=== PATIENT | female | born 1960 | race Caucasian/White ===

== ENCOUNTER → 2016-02-17 | Outpatient (CLI) | payer BC ==
[~2016-02-17] MED LIST: CARB200C5 PO; VITA50003 PO
--- NOTE | 2016-02-17 13:45 | REPMRS ---
Patient History The patient states she had a clinical breast exam in 02/2015. Family history of pancreatic cancer in father. Digital Woman Screen Mammo: February 17, 2016 - Exam #: [id number] Bilateral CC and MLO view(s) were taken. Technologist: Lis Hollins, Technologist Prior study comparison: January 20, 2015, digital woman screen mammo performed at [facility] to [facility]. January 14, 2014, digital woman screen mammo performed at [facility]. January 12, 2013, digital woman screen mammo performed at [facility] to [facility]. FINDINGS: There are scattered fibroglandular densities. There has been no change in the appearance of the mammogram from the prior studies. There is a mild amount of scattered fibroglandular density which is fairly symmetric. There is no interval development of dominant mass, architectural distortion, or clustered microcalcification suggestive of malignancy. ASSESSMENT: BI-RADS/ACR category 1 mammogram. Negative. Recommendation Routine screening mammogram in 1 year (for women over age 40). This mammogram was interpreted with the aid of an FDA-approved computer-aided dectection system. Electronically Signed By: Tian Salinas MD 02/17/16 0878
== END ==
LOC: M WHC 13:12
PROVIDERS: ATTEND Obstetrics & Gynecology
DX: Z12.31 Encounter for screening mammogram for malignant neoplasm of breast (principal)

== ENCOUNTER → 2016-07-20 | Outpatient (REF) | payer BC | LOC: M LAB REF 16:49 | PROVIDERS: ATTEND Nurse Practitioner Adult Health | DX: R56.9 Unspecified convulsions (principal) ==

== ENCOUNTER 2017-01-05 12:31 | Day surgery (SDC) | payer BC ==
[~2017-01-05] VITALS: Ht 167.6 cm; Wt 58.5 kg
[~2017-01-05 12:31] MED LIST changes: +VITA1CAP40 PO; +VITA1CAP7 PO; -VITA50003 PO
[2017-01-05] MEDS ORDERED: NS 1,000 ML IV ONE (12:45)
--- NOTE | 2017-01-05 14:24 | ROOR ---
Patient Name: Hailey Conway Procedure Date: 01/05/2017 2:00 PM Date of : 1960 Age: 56 Room: [facility] Gender: Female Note Status: Finalized Procedure: Total Colonoscopy to Cecum Indications: Follow-up for history of rectal polyps of uncertain behavior Providers: Marcellus Kamara MD Referring MD: Sheryl Mathis NP Requesting Provider: Medicines: Monitored Anesthesia Care Complications: No immediate complications. Procedure: Pre-Anesthesia Assessment: - The heart rate, respiratory rate, oxygen saturations, blood pressure, adequacy of pulmonary ventilation, and response to care were monitored throughout the procedure. The Colonoscope was introduced through the anus and advanced to the cecum, identified by appendiceal orifice and ileocecal valve. The colonoscopy was performed without difficulty. The patient tolerated the procedure well. The quality of the bowel preparation was excellent. Findings: The perianal and digital rectal examinations were normal. Non-bleeding internal hemorrhoids were found during retroflexion. The hemorrhoids were small and Grade I (internal hemorrhoids that do not prolapse). No other significant abnormalities were identified in a careful examination of the remainder of the colon. The exam was otherwise without abnormality on direct and retroflexion views. Impression: - Non-bleeding internal hemorrhoids. - The examination was otherwise normal on direct and retroflexion views. - No specimens collected. - The exam was otherwise normal to the cecum. Recommendation: - Patient has a contact number available for emergencies. The signs and symptoms of potential delayed complications were discussed with the patient. Return to normal activities tomorrow. Written discharge instructions were provided to the patient. - High fiber diet. - Discharge patient to home. - Continue present medications. - Repeat colonoscopy in 5 years for surveillance. - Return to referring physician. - The findings and recommendations were discussed with the patient's family. Marcellus Kamara MD Marcellus Kamara MD 01/05/2017 2:24:00 PM This report has been signed electronically. Number of Addenda: 0 Note Initiated On: 01/05/2017 2:00 PM Estimated Blood Loss: Estimated blood loss: none.
[2017-01-05] MEDS ORDERED: LIDOCAINE 2% INJ 100 MG/5 ML SDV (FOR ANES.) As Ordered ONE (14:26)
[2017-01-05] MEDS ORDERED: PROPOFOL 200 MG/20 ML VIAL As Ordered ONE (14:27)
[2017-01-05 14:43] VITALS: BP 123/77
== END 2017-01-05 14:58 | disposition home or self-care (01) ==
LOC: M OPP 12:31
PROVIDERS: ATTEND Internal Medicine Gastroenterology
DX: Z86.03 Personal history of neoplasm of uncertain behavior (principal); K64.0 First degree hemorrhoids; Z86.010 Personal history of colon polyps; R56.9 Unspecified convulsions; M19.90 Unspecified osteoarthritis, unspecified site; Z79.899 Other long term (current) drug therapy; Z78.0 Asymptomatic menopausal state; Z09 Encounter for follow-up examination after completed treatment for conditions other than malignant neoplasm

== ENCOUNTER → 2017-02-09 | Outpatient (REF) | payer BC ==
[2017-02-10 05:08] LABS: CARBAMAZEPINE (TEGRETOL) LEVEL 9.1 UG/ML (4.0-10.0)
== END ==
LOC: M LAB REF 16:45
DX: R56.9 Unspecified convulsions (principal)
CPT/HCPCS: 80156

== ENCOUNTER → 2017-02-17 | Outpatient (CLI) | payer BC | LOC: M WHC 12:52 | DX: Z12.31 Encounter for screening mammogram for malignant neoplasm of breast (principal) | CPT/HCPCS: 77067 ==

== ENCOUNTER → 2017-09-15 | Outpatient (REF) | payer BC | LOC: M LAB REF 16:07 | DX: J02.9 Acute pharyngitis, unspecified (principal) | CPT/HCPCS: 87081 ==

== ENCOUNTER → 2017-10-18 | Outpatient (REF) | payer BC ==
[2017-10-18 13:28] LABS: APPEARANCE, URINE HAZY (CLEAR); BACTERIA, URINE AUTO 1+ (NEGATIVE); BILIRUBIN, URINE AUTO NEGATIVE (NEGATIVE); BLOOD, URINE BLOOD 2+ (NEGATIVE); COLOR, URINE STRAW (YELLOW); GLUCOSE, URINE (UA) AUTO NEGATIVE (NEGATIVE); KETONE, URINE AUTO NEGATIVE (NEGATIVE); LEUKOCYTE ESTERASE, URINE AUTO 3+ (NEGATIVE); MUCUS, URINE SMALL (NEGATIVE); NITRITE, URINE AUTO NEGATIVE (NEGATIVE); PROTEIN, URINE AUTO NEGATIVE (NEGATIVE); RBC, URINE AUTO 7 /HPF (0-3); SPECIFIC GRAVITY URINE AUTO 1.003 (1.002-1.035); SQUAMOUS EPITHELIAL CELL UR AU 0 /HPF (0-6); UROBILINOGEN, URINE AUTO 0.2 mg/dL (0.0-2.0); WBC, URINE AUTO 77 /HPF (0-3)
== END ==
LOC: M LAB REF 12:12
DX: N39.0 Urinary tract infection, site not specified (principal)
CPT/HCPCS: 81001

== ENCOUNTER → 2018-02-21 | Outpatient (CLI) | payer BC ==
[~2018-02-21] MED LIST changes: +CARB1CAP2 PO; -CARB200C5 PO; -VITA1CAP40 PO; +VITA50005 PO
--- NOTE | 2018-02-21 14:03 | REPMRS ---
Patient History The patient states she had a clinical breast exam in 02/2017. Patient is postmenopausal. Family history of pancreatic cancer in father. No Hormone Replacement Therapy Digital Woman Screen Mammo: February 21, 2018 - Exam #: [id number] Bilateral CC and MLO view(s) were taken. Technologist: Lis Hollins, Technologist Prior study comparison: February 17, 2017, digital woman screen mammo performed at [facility]. February 17, 2016, digital woman screen mammo performed at [facility]. January 20, 2015, digital woman screen mammo performed at [facility]. FINDINGS: The breast tissue is heterogeneously dense. This may lower the sensitivity of mammography. There is a moderate amount of heterogeneously dense fibroglandular tissue which is fairly symmetric. There is no interval development of dominant mass, architectural distortion, or clustered microcalcification typical of malignancy. There has been no change in the appearance of the mammogram from the prior studies. 3-D tomosynthesis shows no additional findings. Assessment: BI-RADS/ACR category 1 mammogram. Negative. Recommendation Routine screening mammogram of both breasts in 1 year (for women over age 40). This patient's Lifetime Breast Cancer RIsk is estimated at 10.2 %. This mammogram was interpreted with the aid of an FDA-approved computer-aided dectection system. Electronically Signed By: Tian Salinas MD 02/21/18 [id number]
== END ==
LOC: M WHC 09:41
PROVIDERS: ATTEND Obstetrics & Gynecology
DX: Z12.31 Encounter for screening mammogram for malignant neoplasm of breast (principal); Z78.0 Asymptomatic menopausal state

== ENCOUNTER → 2018-04-12 | Outpatient (REF) | payer BC | LOC: M LAB REF 17:59 | PROVIDERS: ATTEND Nurse Practitioner Adult Health | DX: R56.9 Unspecified convulsions (principal) ==

== ENCOUNTER → 2018-10-17 | Outpatient (REF) | payer BC ==
[~2018-10-17] MED LIST changes: -CARB1CAP2 PO; +CARB200C4 PO; +D-3-50003 PO; -VITA1CAP7 PO
== END ==
LOC: M LAB REF 16:40
PROVIDERS: ATTEND Nurse Practitioner Adult Health
DX: R56.9 Unspecified convulsions (principal)

== ENCOUNTER → 2019-02-15 | Outpatient (REF) | payer BC ==
[2019-02-15 18:58] LABS: C REACTIVE PROTEIN QUANTITATIV < 0.30 MG/DL (0.00-0.30); CARBAMAZEPINE (TEGRETOL) LEVEL 8.3 UG/ML (4.0-10.0); RHEUMATOID FACTOR QUANT < 10.0 IU/ML (<15.0)
[2019-02-16 18:20] LABS: HEPATITIS B SURFACE ANTIGEN NEGATIVE (NEGATIVE)
[2019-02-16 18:47] LABS: HEPATITIS B CORE ANTIBODY IGM NEGATIVE (NEGATIVE); HEPATITIS C VIRUS ABY INDEX < 0.0 INDEX (<0.8)
[2019-02-16 18:49] LABS: HEPATITIS A ANTIBODY IGM NEGATIVE (NEGATIVE)
[2019-02-19 00:06] LABS: ANTINUCLEAR ANTIBODIES DIRECT Negative (Negative); CYCLIC CITRULLINATED PEPTIDE 12 units (0-19); Lyme Disease IgG/IgM Antibodie <0.91 ISR (0.00-0.90); Lyme Disease IgM Ab Quantitati <0.80 index (0.00-0.79)
== END ==
LOC: M LAB REF 17:42
PROVIDERS: ATTEND Nurse Practitioner Adult Health
DX: M25.50 Pain in unspecified joint (principal); R56.9 Unspecified convulsions

== ENCOUNTER → 2019-03-06 | Outpatient (CLI) | payer BC ==
--- NOTE | 2019-03-06 09:34 | REP ---
BILATERAL SCREENING DIGITAL MAMMOGRAM WITH 3D TOMOSYNTHESIS: There are no palpable abnormalities or other breast complaints. The the patient states she had a clinical breast examination the February,. The Tyrer Cuzick Score is: 10.0% . Comparison is 01/20/2015. The breasts are heterogeneously dense, which could obscure small masses. There is no dominant mass, micro calcific cluster or architectural distortion that would indicate malignancy. There are no additional findings on 3D tomosynthesiss. There is no change from the prior study. Impression: BIRADS/ACR category 1 mammogram. Negative. Recommendation: Routine annual screening mammography. Because of the increased breast density, annual adjunctive breast MRI in addition to screening mammography is recommended. These can be performed at alternating six month intervals. This mammogram was interpreted with the aid of a FDA approved computer-aided detection system. A. Negative mammogram reports should not delay biopsy if a dominant or clinically suspicious mass is present. B. Not all breast cancers are identified by mammography or tomosynthesis. C. Adenosis and dense breasts may obscure an underlying neoplasm. Patient letter M1 dense breasts. Electronically Signed by Robin Peoples MD 03/06/2019 09:25 A
== END ==
LOC: M WHC 08:18
PROVIDERS: ATTEND Obstetrics & Gynecology
DX: Z12.31 Encounter for screening mammogram for malignant neoplasm of breast (principal)

== ENCOUNTER → 2019-03-20 | Outpatient (REF) | payer BC | LOC: M LAB REF 14:09 | PROVIDERS: ATTEND Physician Assistant Medical | DX: J02.0 Streptococcal pharyngitis (principal) ==

== ENCOUNTER → 2020-01-08 | Outpatient (REF) | payer BC | LOC: M LAB REF 16:16 | PROVIDERS: ATTEND Nurse Practitioner Adult Health | DX: R56.9 Unspecified convulsions (principal) ==

== ENCOUNTER → 2020-04-10 | Outpatient (REF) | payer BC | LOC: M LAB REF 16:21 | PROVIDERS: ATTEND Nurse Practitioner Adult Health | DX: J02.9 Acute pharyngitis, unspecified (principal); D10.9 Benign neoplasm of pharynx, unspecified ==

== ENCOUNTER → 2020-07-04 | Outpatient (REF) | payer BC | LOC: M LAB REF 11:10 | PROVIDERS: ATTEND Nurse Practitioner Adult Health | DX: Z79.899 Other long term (current) drug therapy (principal); R56.9 Unspecified convulsions ==

== ENCOUNTER → 2020-07-23 | Outpatient (REF) | payer BC | LOC: M LAB REF 14:47 | PROVIDERS: ATTEND Physician Assistant | DX: C44.622 Squamous cell carcinoma of skin of right upper limb, including shoulder (principal) ==

== ENCOUNTER → 2020-09-02 | Outpatient (REF) | payer BC ==
[2020-09-02 19:23] LABS: GC DNA AMPLIFICATION NEGATIVE (NEGATIVE)
[2020-09-02 19:37] LABS: HIV 1&2 SCREEN CENTAUR NEGATIVE (NEGATIVE)
== END ==
LOC: M LAB REF 16:50
PROVIDERS: ATTEND Nurse Practitioner Adult Health
DX: Z72.51 High risk heterosexual behavior (principal); R30.0 Dysuria

== ENCOUNTER → 2021-01-05 | Outpatient (REF) | payer BC | LOC: M LAB REF 13:59 | PROVIDERS: ATTEND Physician Assistant | DX: L08.9 Local infection of the skin and subcutaneous tissue, unspecified (principal) ==

== ENCOUNTER → 2021-01-09 | Outpatient (REF) | payer BC | LOC: M LAB REF 12:21 → EEVIPCON 12:21 | PROVIDERS: ATTEND Nurse Practitioner Adult Health | DX: R56.9 Unspecified convulsions (principal); Z79.899 Other long term (current) drug therapy ==

== ENCOUNTER → 2021-02-11 | Outpatient (CLI) | payer BC ==
--- NOTE | 2021-02-11 15:57 | REPMRS ---
Patient History The patient states she had a clinical breast exam in 2020. Family history of pancreatic cancer in father. No Hormone Replacement Therapy No breast complaints today Patient signed the MRS sheet Patient not sure of dates of first 2 Moderna vaccines but in the left arm 3rd vaccine the beginning of Jan.-left arm Priors on PACS Patient Identification Verified Digital Woman Screen Mammo: February 11, 2021 - Exam #: [id number] Bilateral CC and MLO view(s) were taken. Technologist: Ban Beltran, Technologist Prior study comparison: March 06, 2019, bilateral digital woman screen mammo performed at [facility]. February 21, 2018, bilateral digital woman screen mammo performed at [facility]. FINDINGS: There are scattered fibroglandular densities. Screening. Digital screening (2D) mammography was performed bilaterally in the CC and MLO projections. Additionally, breast tomosynthesis (3D mammography) was performed bilaterally in the CC and MLO projections. Todays exam was compared to the prior exam/exams. By history, the patient has no complaints of a palpable breast abnormality or other significant breast complaints. The breasts are unchanged in size and shape. There are no sergio-soft tissue densities or spiculated masses. There is no internal architectural distortion. There are no suspicious sergio-calcific clusters. Skin thickening or nipple retraction is not present. IMPRESSION: BI-RADS Category 2- Benign Findings. There is no evidence of malignant alteration of the breasts. Followup examination recommended in one year. The Volpara volumetric breast density category is B, there are scattered areas of fibroglandular densities. This mammogram was [facility] FDA approved computer aided detection system for mammography. The lifetime Tyrer-Cuzick score is 9.5 % Negative x-ray reports should not delay surgical consultation if a dominant or clinically suspicious mass is present. Not all breast cancers can be identified by mammography. Therefore, we recommend that you continue to perform regular breast self-examination and physical examination and then promptly contact your physician of any concerns or changes. Adenosis and dense breasts may obscure an underlying neoplasm. Assessment: BI-RADS/ACR category 2 mammogram. Benign Findings. Recommendation Routine screening mammogram of both breasts in 1 year. Electronically Signed By: Will Rubio DO 02/11/21 1553
== END ==
LOC: M WHC 14:11
PROVIDERS: ATTEND Obstetrics & Gynecology
DX: Z12.31 Encounter for screening mammogram for malignant neoplasm of breast (principal)

== ENCOUNTER → 2021-08-03 | Outpatient (REF) | payer BC | LOC: M LAB REF 16:21 | PROVIDERS: ATTEND Nurse Practitioner Adult Health | DX: R56.9 Unspecified convulsions (principal) ==

== ENCOUNTER → 2022-03-21 | Outpatient (CLI) | payer BC, OTHER ==
[~2022-03-21] MED LIST changes: +ROSU10TA6 PO; +VITA1CAP25 PO
== END ==
LOC: M LABSMTC 10:07
PROVIDERS: ATTEND Anesthesiology
DX: Z01.812 Encounter for preprocedural laboratory examination (principal); Z11.52 Encounter for screening for COVID-19

== ENCOUNTER 2022-03-24 08:43 | Day surgery (SDC) | payer OTHER ==
[~2022-03-24] VITALS: Ht 167.6 cm; Wt 61.1 kg
[~2022-03-24 08:43] MED LIST changes: +NS 1,000 ML IV ONE
[2022-03-24] MEDS ORDERED: propofoL 200 MG/20 ML VIAL As Ordered ONE ×2 (09:58→10:07)
[2022-03-24] MEDS ORDERED: LIDOCAINE 2% 100MG/5ML SDV (FOR ANES.) As Ordered ONE (09:58)
[2022-03-24 10:32] VITALS: BP 155/83
== END 2022-03-24 10:44 | disposition home or self-care (01) ==
LOC: M OPP 08:43
PROVIDERS: ATTEND Internal Medicine Gastroenterology
DX: Z12.11 Encounter for screening for malignant neoplasm of colon (principal); Z86.010 Personal history of colon polyps; K64.0 First degree hemorrhoids; K57.30 Diverticulosis of large intestine without perforation or abscess without bleeding; G40.89 Other seizures; Z79.02 Long term (current) use of antithrombotics/antiplatelets; Z79.899 Other long term (current) drug therapy

== ENCOUNTER → 2022-04-12 | Outpatient (REF) | payer OTHER ==
[~2022-04-12] MED LIST changes: -NS 1,000 ML IV ONE
== END ==
LOC: M LAB REF 16:16
PROVIDERS: ATTEND Nurse Practitioner Adult Health
DX: R56.9 Unspecified convulsions (principal)

== ENCOUNTER → 2022-04-16 | Outpatient (REF) | payer OTHER | LOC: M LAB REF 12:14 | PROVIDERS: ATTEND Nurse Practitioner Adult Health | DX: R56.9 Unspecified convulsions (principal) ==

== ENCOUNTER → 2022-04-21 | Outpatient (CLI) | payer OTHER | LOC: M WHC 07:08 | PROVIDERS: ATTEND Nurse Practitioner Adult Health | DX: Z12.31 Encounter for screening mammogram for malignant neoplasm of breast (principal) ==

== ENCOUNTER → 2022-09-15 | Outpatient (REF) | payer OTHER | LOC: M LAB REF 14:10 | PROVIDERS: ATTEND Nurse Practitioner Adult Health | DX: R56.9 Unspecified convulsions (principal) ==

== ENCOUNTER → 2023-03-23 | Outpatient (REF) | payer OTHER | LOC: M LAB REF 17:25 | PROVIDERS: ATTEND Nurse Practitioner Adult Health | DX: R56.9 Unspecified convulsions (principal) ==

== ENCOUNTER → 2023-05-11 | Outpatient (CLI) | payer BC, OTHER | LOC: M WHC 06:49 | PROVIDERS: ATTEND Nurse Practitioner Adult Health | DX: Z12.31 Encounter for screening mammogram for malignant neoplasm of breast (principal); R92.323 Mammographic fibroglandular density, bilateral breasts ==

== ENCOUNTER → 2023-09-16 | Outpatient (REF) | payer BC, OTHER ==
[~2023-09-16] MED LIST changes: -ROSU10TA6 PO; +ROSU10TA61 PO
== END ==
LOC: M LAB REF 16:21
PROVIDERS: ATTEND Nurse Practitioner Adult Health
DX: R56.9 Unspecified convulsions (principal)

== ENCOUNTER → 2024-03-23 | Outpatient (REF) | payer BC | LOC: M LAB REF 12:50 | PROVIDERS: ATTEND Nurse Practitioner Adult Health | DX: R56.9 Unspecified convulsions (principal) ==

== ENCOUNTER → 2024-04-04 | Outpatient (REF) | payer BC | LOC: M SFHCDERM 17:33 | PROVIDERS: ATTEND Physician Assistant | DX: L57.0 Actinic keratosis (principal) ==

== ENCOUNTER → 2024-06-15 | Outpatient (CLI) | payer BC | LOC: M WHC 07:30 | PROVIDERS: ATTEND Nurse Practitioner Adult Health | DX: Z12.31 Encounter for screening mammogram for malignant neoplasm of breast (principal); R92.333 Mammographic heterogeneous density, bilateral breasts ==

== ENCOUNTER → 2024-09-28 | Outpatient (REF) | payer BC | LOC: M LAB REF 12:05 | PROVIDERS: ATTEND Nurse Practitioner Adult Health | DX: R56.9 Unspecified convulsions (principal) ==

== ENCOUNTER → 2024-10-03 | Outpatient (REF) | payer BC ==
[2024-10-03 14:56] LABS: TOTAL 25(OH) VITAMIN D 33.7 NG/ML (20.0-100.0)
[2024-10-03 14:59] LABS: VITAMIN B12 LEVEL 407.0 PG/ML (211-911)
== END ==
LOC: M LAB REF 14:26
PROVIDERS: ATTEND Nurse Practitioner Adult Health
DX: E55.9 Vitamin D deficiency, unspecified (principal); K58.2 Mixed irritable bowel syndrome